=== PATIENT | female | born 1955 | race Asian ===

== ENCOUNTER → 2020-06-16 11:30 | Outpatient (CLI) | payer OTHER, SELFPAY ==
[2020-06-16 12:50] LABS: COVID19 -Nasal RAPID Negative (Negative)
== END ==
PROVIDERS: Referring Provider Student in an Organized Health Care Education/Training Program; Visit Provider Student in an Organized Health Care Education/Training Program
DX: Z01.812 Encounter for preprocedural laboratory examination (principal); Z20.822 Contact with and (suspected) exposure to COVID-19
CPT/HCPCS: 87635

== ENCOUNTER → 2020-06-18 10:06 | Outpatient (CLI) | payer OTHER, SELFPAY ==
--- NOTE | 2020-06-18 17:59 | DI.NM.S_ITS ---
DATE OF SERVICE: 06/18/2020 PROCEDURE PERFORMED: Vasodilator stress and rest myocardial perfusion imaging with gating to assess ejection fraction and regional wall motion. ORDERING PROVIDER: Dr. Shila Massey. INDICATIONS: The patient is a 64-year-old female with poorly-controlled diabetes and atypical chest pain. CARDIAC STRESS: Per protocol, 0.4 mg of regadenoson was infused and the patient was walked on the treadmill at 1.0 mph. With this, she had an accelerated heart rate response to stress with a resting heart rate of 108 BPM and increasing to a maximum of 150 BPM (97% of her predicted maximum). She had no chest discomfort although reported feeling diaphoretic. Her resting ECG showed sinus rhythm with diffuse nonspecific ST-segment abnormalities that remained unchanged with stress. There were no arrhythmias. Per protocol, 26.2 millicuries of technetium-99m Myoview was injected and she was imaged 15 minutes later. Earlier in the day while at rest, she had been injected with 11.8 millicuries of technetium-99m Myoview and was imaged 30 minutes later, again using a gated SPECT acquisition protocol. FINDINGS: 1. Raw data: There is fairly good myocardial tracer uptake. Modest breast shadows are noted. Lung/heart ratio is normal at 0.32 with a normal TID ratio of 0.95. 2. Quantitated gated SPECT: Post-stress ejection fraction is estimated at 85% without any focal wall motion abnormality. The resting ejection fraction is estimated at 72%, although visually appears quite similar again with no wall motion abnormalities. Resting end-diastolic volume is 79 mL. 3. Myocardial perfusion imaging: Post-stress supine images show a normal perfusion pattern without any perfusion defects, supported by normal perfusion imaging in the prone position. The resting images show an identical perfusion pattern without any areas of improvement. IMPRESSION: 1. Normal myocardial perfusion study. 2. No evidence for myocardial ischemia or previous myocardial infarction. 3. High normal left ventricular systolic function without any focal wall motion abnormality. 4. No angina or ECG evidence of ischemia with pharmacologic vasodilator stress augmented with low-level walking, although with a fairly pronounced accelerated heart rate response to exercise but no arrhythmias. Gloria Vernon - Anatoliy/reshma doc#: [id number]/job#: [id number] dd: 06/18/2020 16:54:00 dt: 06/18/2020 17:35:00 DICTATING MD/COPIES TO: Jw Bush MD; Shila Massey, DO COPIES MNE: DENIZ;
== END ==
PROVIDERS: PCP Family Medicine; Referring Provider Family Medicine; Visit Provider Family Medicine
DX: R07.89 Other chest pain; E11.65 Type 2 diabetes mellitus with hyperglycemia
CPT/HCPCS: 78452; 93017; A9502; J2785

== ENCOUNTER 2023-09-04 16:20 | Emergency (ER) | payer MEDICARE, OTHER, SELFPAY ==
[2023-09-04] VITALS (8 sets, daily range): BP systolic 147–195; BP diastolic 80–115; PULSE 100–114; RESP 16; TEMP 36.6; O2SAT 90–100; BMI 32.5
--- NOTE | 2023-09-04 16:39 | DI.RAD.S_ITS ---
PROCEDURE: XR SHOULDER LT MIN 2V INDICATIONS: GLF, SEVERE SHOULDER PAIN TECHNIQUE: 2 views of the shoulder were acquired. COMPARISON: None. FINDINGS: Bones: Acute slightly comminuted fracture involving proximal humerus with superior migration of humeral shaft in relation to glenoid. Fracture line is seen extending to involve greater tuberosity. No dislocation. Osteoarthritic changes are seen in acromioclavicular joint and glenohumeral joint. No suspicious bony lesions. Visualized ribs appear intact. Soft tissues: No suspicious soft tissue calcifications. IMPRESSION: Acute comminuted and impacted left proximal humeral fracture with involvement of greater tuberosity as above. No dislocation. Dictated by: Viraj Partida M.D. on 09/04/2023 at 17:02 Approved by: Viraj Partida M.D. on 09/04/2023 at 17:03
[2023-09-04] MEDS: KETOROLAC 30 MG/ML VIAL 15 MG IV (16:52)
[2023-09-04] MEDS: MORPHINE 4 MG/ML INJ IV (16:52)
--- NOTE | 2023-09-04 17:02 | ED.FALL ---
HPI - Fall General Chief Complaint: Fall Stated Complaint: GLF, Shoulder pain Time Seen by Provider: 09/04/23 16:24 Source: EMS Mode of arrival: EMS History of Present Illness HPI Narrative: 67-year-old female presents by EMS from home for left shoulder pain after a ground level fall. Patient reports chronic balance issues and walks with a cane at baseline. Patient states that she lost her balance and fell, landing on her left shoulder. She denies hitting her head, denies loss of consciousness. Reports 11/18 shoulder pain Related Data Previous Rx's Medication Instructions Recorded cefpodoxime 200 mg tablet 200 mg PO Q12H #20 tabs 09/04/23 hydrocodone 5 mg-acetaminophen 325 1 tab PO Q8H PRN pain #14 tabs 09/04/23 mg tablet Allergies Allergy/AdvReac Type Severity Reaction Status Date / Time No Known Drug Allergies Allergy Verified 09/04/23 16:41 Review of Systems Review of Systems Narrative: See HPI Patient History Social History Smoking Status: Never smoker Smoking Status: Never smoker Substance Use Type: does not use Exam Initial Vital Signs Initial Vital Signs: Vital Signs Temperature 98 F 09/04/23 16:38 Pulse Rate 100 H 09/04/23 16:38 Respiratory Rate 16 09/04/23 16:38 Blood Pressure 195/115 H 09/04/23 16:38 Pulse Oximetry 100 09/04/23 16:38 Oxygen Delivery Method Room Air 09/04/23 16:38 Const: Awake, alert, in pain Cardiac: Tachycardia, regular rhythm RESP: unlabored, clear bilaterally, no wheezing MSK: Exquisite tenderness to palpation along left shoulder joint, reduced range of motion due to pain Skin: Warm, Dry, intact, no rashes Neuro: AO x3, CN II-XII grossly intact, moves all extremities Psych: Flat affect Course Orders Ordered: ED Orders 09/04/23 16:39 XR shoulder LT min 2V Stat 09/04/23 17:40 CBC Auto Diff [Complete Blood Count AUTO DIFF] Stat CMP [Comprehensive Metabolic Panel] Stat 09/04/23 18:00 UA Complete [Urinalysis and Microscopic] Stat Urine Culture Stat Discontinued Medications Ketorolac Tromethamine (Ketorolac 30 Mg/Ml Vial) 15 mg IV NOW ONE Stop: 09/04/23 16:40 Last Admin: 09/04/23 16:52 Dose: 15 mg Documented By: JOSE CRUZ Morphine Sulfate (Morphine 4 Mg/Ml Inj) 4 mg IV NOW ONE Stop: 09/04/23 16:40 Last Admin: 09/04/23 16:52 Dose: 4 mg Documented By: JOSE CRUZ Vital Signs Vital signs: Vital Signs - 8 hr 09/04/23 16:38 09/04/23 16:43 09/04/23 17:10 Temperature 98 F Pulse Rate 100 H 102 H Respiratory Rate 16 Blood Pressure 195/115 H Pulse Oximetry 100 94 91 Oxygen Delivery Method Room Air 09/04/23 17:11 09/04/23 17:11 09/04/23 17:30 Temperature Pulse Rate 108 H Respiratory Rate Blood Pressure 159/96 H 162/93 H Pulse Oximetry 93 Oxygen Delivery Method 09/04/23 17:30 09/04/23 18:01 09/04/23 18:02 Temperature Pulse Rate 109 H 107 H Respiratory Rate Blood Pressure 171/101 H Pulse Oximetry 90 L 90 L Oxygen Delivery Method 09/04/23 18:02 Temperature Pulse Rate 107 H Respiratory Rate Blood Pressure Pulse Oximetry 91 Oxygen Delivery Method Room Air MDM - Fall Lab Data 09/04/23 17:40 09/04/23 17:40 Labs: Lab Results 09/04/23 09/04/23 Range/Units 17:40 18:00 WBC 17.1 H (4.5-11.0) X10^3/uL RBC 4.69 (4.0-5.2) X10^6/uL Hgb 14.3 (12.0-16.0) g/dL Hct 43.0 (36-46) % MCV 91.9 (80-100) fL MCH 30.5 (26-34) PG MCHC 33.2 (30-36) % RDW 13.0 (11.6-14.8) % Plt Count 250 (150-400) X10^3/uL Neut % (Auto) 87.0 H (50-75) % Lymph % (Auto) 8.6 L (25-40) % [place] % (Auto) 3.4 (3-14) % Eos % (Auto) 0.5 L (2-4) % Baso % (Auto) 0.5 (0-2) % Neut # (Auto) 69729 H (3821-0121) /uL Lymph # (Auto) 1500 (2042-2495) /uL [place] # (Auto) 600 (0-900) /uL Eos # (Auto) 100 (0-450) /uL Baso # (Auto) 100 (0-100) /uL Sodium 135 L (137-145) mmol/L Potassium 4.0 (3.4-5.1) mmol/L Chloride 102 (98-107) mmol/L Carbon Dioxide 23 (22-32) mmol/L BUN 13 (7-17) mg/dL Creatinine 0.49 L (0.52-1.04) mg/dL Estimated GFR > 60 (>60) mL/min BUN/Creatinine Ratio 26.5 H (6-22) Glucose 423 H (80-110) mg/dL Calcium 8.8 (8.4-10.2) mg/dL Total Bilirubin 0.8 (0.2-1.3) mg/dL AST 49 H (14-36) IU/L ALT 42 H (<35) IU/L Alkaline Phosphatase 131 H (38-126) U/L Total Protein 7.7 (6.3-8.2) g/dL Albumin 4.5 (3.5-5.0) g/dL Globulin 3.2 (1.7-4.1) g/dL Albumin/Globulin Ratio 1.4 (1.0-2.8) Urine Color Yellow Urine Appearance Clear Urine pH 6.0 (4.5-8.0) Ur Specific [place] 1.010 (1.000-1.035) Urine Protein 1+ H (Negative) Urine Glucose (UA) 3+ H (Negative) g/dL Urine Ketones 2+ H (NEGATIVE) Urine Occult Blood Negative (Negative) Urine Nitrate Positive H (Negative) Urine Bilirubin Negative (NEGATIVE) Urine Urobilinogen 0.2 (0.2) E.U./dL Ur Leukocyte Esterase Negative (NEGATIVE) Urine RBC None seen (0-5/HPF) Urine WBC 5-10/hpf H (0-5/HPF) Ur Squamous Epith Cells 0-1 /hpf (0-5/HPF) Urine Bacteria Many (>30) H (None) Ur Culture Indicated? Specimen cultured Vol Urine Centrifuged 10ml (spun) Imaging Data Extremity x-ray #1: Radiologist's Impression: PROCEDURE: XR SHOULDER LT MIN 2V INDICATIONS: GLF, SEVERE SHOULDER PAIN TECHNIQUE: 2 views of the shoulder were acquired. COMPARISON: None. FINDINGS: Bones: Acute slightly comminuted fracture involving proximal humerus with superior migration of humeral shaft in relation to glenoid. Fracture line is seen extending to involve greater tuberosity. No dislocation. Osteoarthritic changes are seen in acromioclavicular joint and glenohumeral joint. No suspicious bony lesions. Visualized ribs appear intact. Soft tissues: No suspicious soft tissue calcifications. IMPRESSION: Acute comminuted and impacted left proximal humeral fracture with involvement of greater tuberosity as above. No dislocation. Dictated by: Viraj Partida M.D. on 09/04/2023 at 17:02 Approved by: Viraj Partida M.D. on 09/04/2023 at 17:03 [facility] Narrative Medical decision making narrative: Ground level fall with left shoulder pain. Suspect underlying fracture. Denies other injuries or pain at this time. X-ray shows humeral head fracture without dislocation. Placed in sling for comfort. I asked if patient would like to speak with social work about home health options, since while her son is at work she was at home during the day, however patient declines at this time. Son is now at bedside and states that the patient has seemed somewhat weaker all over over the last week without obvious cause. Laboratory work and urinalysis ordered for assessment. Laboratory work shows leukocytosis, urinalysis shows signs of urinary tract infection. Shared decision-making with the patient and son at bedside, offered admission for observation if patient feels that with her weakness, fracture, and infection she was unable to manage at home. Patient states that she would like to go home at this time in son is supportive of plan. Initial dose of antibiotics given in emergency department. ED return precautions discussed at bedside. Discharge Plan Departure Patient Disposition: Home Clinical Impression: Fracture, humerus, Acute UTI Instructions: DI for Urinary Tract Infection (UTI), DI for Shoulder Fracture Activity Restrictions/Additional Instructions: Today you have been diagnosed with a urinary tract infection and a left humerus, or shoulder fracture. Wear the sling to allow gravity to help the bones in your shoulder heal. Follow up with Orthopedic surgery. A short prescription of narcotic medication has been sent to your pharmacy. Be careful when taking this medication as it may cause drowsiness and can increase your risk of falls. Do not take this medication with alcohol or before driving or operating heavy machinery. Prescriptions: New cefpodoxime 200 mg tablet 200 mg PO Q12H Qty: 20 0RF Rx Instructions: must administer with a meal/food hydrocodone-acetaminophen 5-325 mg tablet 1 tab PO Q8H PRN (Reason: pain) Qty: 14 0RF Referrals: Kinza Martinez MD [Physician] - Shila Massey DO [Primary Care Provider] - Stand Alone Forms: Patient Portal/API
[2023-09-04 17:52] LABS: Add Manual Diff / Slide Review NO; Basophils Absolute Auto 100 /uL (0-100); Basophils Percent Auto 0.5 % (0-2); Eosinophils Absolute Auto 100 /uL (0-450); Eosinophils Percent Auto 0.5 % (2-4); Hemoglobin 14.3 g/dL (12.0-16.0); Lymphocytes Absolute Auto 1500 /uL (1100-4500); Lymphocytes Percent Auto 8.6 % (25-40); Mean Corpuscular HGB Conc 33.2 % (30-36); Mean Corpuscular Hemoglobin 30.5 PG (26-34); Mean Corpuscular Volume 91.9 fL (80-100); Monocytes Absolute Auto 600 /uL (0-900); Monocytes Percent Auto 3.4 % (3-14); Neutrophils Absolute Auto 14900 /uL (1500-7000); Platelet Count 250 X10^3/uL (150-400); Red Blood Cell Count 4.69 X10^6/uL (4.0-5.2); White Blood Cell Count 17.1 X10^3/uL (4.5-11.0)
[2023-09-04 18:07] LABS: Alanine Aminotransferase 42 IU/L (<35); Albumin 4.5 g/dL (3.5-5.0); Albumin Globulin Ratio 1.4 (1.0-2.8); BUN Creatinine Ratio 26.5 (6-22); Bilirubin Total 0.8 mg/dL (0.2-1.3); Blood Urea Nitrogen 13 mg/dL (7-17); Calcium 8.8 mg/dL (8.4-10.2); Carbon Dioxide 23 mmol/L (22-32); Chloride 102 mmol/L (98-107); Estimated Glomerular Filt Rate > 60 mL/min (>60); Globulin 3.2 g/dL (1.7-4.1); Glucose 423 mg/dL (80-110); HEMOLYSIS 66 (0-50); Sodium 135 mmol/L (137-145); Total Protein 7.7 g/dL (6.3-8.2)
[2023-09-04 18:09] LABS: Alkaline Phosphatase 131 U/L (38-126); Aspartate Aminotransferase 49 IU/L (14-36)
[2023-09-04 18:14] LABS: Appearance Urine UA CLEAR; Bilirubin Urine UA NEGATIVE (NEGATIVE); Color Urine UA YELLOW; Glucose Urine UA 3+ g/dL (Negative); Ketones Urine UA 2+ (NEGATIVE); Leukocyte Esterase Urine UA NEGATIVE (NEGATIVE); Nitrite Urine UA POSITIVE (Negative); Occult Blood Urine UA NEGATIVE (Negative); Protein Urine UA 1+ (Negative); Urobilinogen Urine UA 0.2 E.U./dL (0.2)
[2023-09-04 18:21] LABS: Bacteria Urine Many (>30); Culture Indicated Urine Specimen Cultured; RBC Urine None Seen (0-5/HPF); Squamous Epithelial Cell Urine 0-1 /HPF (0-5/HPF); Urine Volume 10mL (spun); WBC Urine 5-10/HPF (0-5/HPF)
[2023-09-04] MEDS: cefTRIAXone 1,000 MG in SODIUM CHLORIDE 0.9% 100 ML 200 MG IV (18:43)
== END 2023-09-04 19:29 | disposition home or self-care (01) ==
PROVIDERS: Emergency Provider Emergency Medicine; PCP Family Medicine
DX: S42.202A Unspecified fracture of upper end of left humerus, initial encounter for closed fracture (principal); N39.0 Urinary tract infection, site not specified; W18.30XA Fall on same level, unspecified, initial encounter
CPT/HCPCS: 73030; 80053; 81001; 85025; 87077; 87086; 87186; 96365; 96375; 99284; J0696; J1885; J2270

== ENCOUNTER → 2023-09-19 09:39 | Outpatient (CLI) | payer MEDICARE, SELFPAY ==
--- NOTE | 2023-09-19 | DI.CT.S_ITS ---
PROCEDURE: CT UE LT WO CON INDICATIONS: LEFT SHOULDER PAIN TECHNIQUE: Noncontrast 0.75 mm thick sections acquired from the acromioclavicular joint to the inferior scapula, with coronal and sagittal reformatting. COMPARISON: [facility] [place], CR, XR SHOULDER 2+ VIEWS LEFT, 09/15/2023, 10:08. FINDINGS: Image quality: Excellent. Bones: The left acromioclavicular joint is unremarkable. The left clavicle is intact. Mildly comminuted, minimally impacted fracture of the left humeral neck, with minimally displaced greater tuberosity fracture fragment, Neer classification 2. No dislocation of the glenohumeral joint. Mild inferior subluxation of the glenohumeral joint, likely secondary to glenohumeral effusion. Joint space of the glenohumeral joint is well maintained. Chondrocalcinosis of the glenohumeral joint, representing CPPD arthropathy. Soft tissues: Visualized right and left lung is unremarkable. Mild calcification of the aortic annulus and the thoracic aorta. Moderate left main coronary artery calcification. IMPRESSION: 1. Mildly impacted fracture of the left humeral neck, Neer classification 2. 2. CPPD arthropathy of the glenohumeral joint. Dictated by: Amy Lynn M.D. on 09/21/2023 at 10:57 Approved by: Amy Lynn M.D. on 09/21/2023 at 11:08
== END ==
LOC: CT 09:40
PROVIDERS: PCP Family Medicine; Referring Provider Orthopaedic Surgery; Visit Provider Orthopaedic Surgery
DX: S42.212A Unspecified displaced fracture of surgical neck of left humerus, initial encounter for closed fracture (principal); M11.812 Other specified crystal arthropathies, left shoulder; M25.512 Pain in left shoulder
CPT/HCPCS: 73200